=== PATIENT | male | born 1970 | race Caucasian/White ===

== ENCOUNTER → 2020-03-03 | Outpatient (CLI) | payer BC | LOC: SJCVCIMAG 10:12 | DX: I08.3 Combined rheumatic disorders of mitral, aortic and tricuspid valves (principal); I25.10 Atherosclerotic heart disease of native coronary artery without angina pectoris; I10 Essential (primary) hypertension; E78.00 Pure hypercholesterolemia, unspecified; R06.09 Other forms of dyspnea ==

== ENCOUNTER 2020-03-20 09:33 | Outpatient (CLI) | payer BC, OTHER ==
[~2020-03-20] VITALS: Ht 180.3 cm; Wt 109.0 kg
[2020-03-20 11:16] VITALS: BP 128/90
[2020-03-20] MEDS ORDERED: PROAIR HFA8.5 GM INH (11:27)
[2020-03-20] MEDS ORDERED: ASA81BEC PO (11:27)
[2020-03-20] MEDS ORDERED: COLCHICINE0.6 M1 PO (11:28)
[2020-03-20] MEDS ORDERED: WELLBUTRIN XL300 MG PO (11:28)
[2020-03-20] MEDS ORDERED: MITIGARE0.6 MG PO (11:29)
[2020-03-20] MEDS ORDERED: INDOCIN50 MG PO (11:30)
[2020-03-20] MEDS ORDERED: ALLEGRA ALLERG180 MG PO (11:30)
--- NOTE | 2020-03-20 16:33 | CATHLAB ---
[facility] [place] [address] INVASIVE PROCEDURE REPORT Name: BRANDI WILDE Room #: REG CRISTIN MSamson.#: [id number] Admission: 03/20/20 Attend Phys: Alexys Will MD Discharge: Date of : 66 Report #: [id number] THIS REPORT FOR: cc: Yanira Carlton MD, Melanie MD Park, Jin S. MD ~ APPROVED REPORT Study performed: 03/20/2020 10:21:42 Patient Details Patient Status: Out-Patient Room #: The patient is a 49 year-old male Event Personnel Alexys Will Supervisor [employer], Tracey Nur RN RN, Kel Brock RTR Lai Hartman Ja'net RTR Monitor Procedures Performed Left Heart Cath w/or w/o Coronaries [id number] [facility] Place w/wo Plasty Single LAD 052181 Art Access - R femoral artery* 53171 Initial Mod Sed Same Phys/QHP Gr5y 108635 76596 Mod Sed Same Phys/QHP Ea 895154 Hemostasis w/ Mynx Indication Dyspnea, Unstable angina , Chest pain Risk Factors Hypercholesterolemia, Coronary Artery Disease Procedure Narrative The patient was brought electively to the Cardiac Catheterization Laboratory and was prepped and draped in a sterile manner. The Right Groin^ was infiltrated with 1% Lidocaine subcutaneous anesthesia. A PINNACLE 4FR Sheath #[id number] sheath was inserted into the RFA^. Coronary angiography was performed using coronary diagnostic catheters. The right coronary system was accessed and visualized with a JR4 catheter. The left coronary system was accessed and visualized with a JL4 catheter. The left ventricle was accessed and visualized with a JR4 catheter. Left ventriculogram was performed in 30 degree projection. Closure device was deployed with a Fr MYNXGRIP 6/7F #[id number]. The patient tolerated the procedure well and there were no complications associated with the procedure. There was no hematoma. The sheath was upsized to a 6FR [place] before the intervention over [facility] [address] [place] [address] INVASIVE PROCEDURE REPORT Name: ANDRYBRANDI Room #: REG CL [facility]#: [id number] Admission: 03/20/20 Attend Phys: Alexys Will MD Discharge: Date of : 66 Report #: [id number] guidewire. Intraoperative Conscious Sedation Sedation start time: 12:16 Case end Time: 13:18 Fentanyl 50 mcg Versed 1 mg Fluoro Time: 11.80 minutes Dose: DAP 11099.00 cGycm2 3546 mGy Contrast Type and Amount: Omnipaque 290 ml Coronary Angiography The patient's coronary anatomy is right dominant. Diagnostic Cath Left Main This is a large-caliber vessel with mild disease in the distal segment, 20%. LAD The LAD is a moderate-sized caliber vessel with a severe occlusion in the midsegment, 95%. Diagonal 1 This is a moderate-sized caliber vessel, branching off the proximal segment of the LAD. The first diagonal artery has mild disease and divides into 3 branches as it supplies the anterolateral and lateral hernandez. It terminates in the inferior wall. Circumflex This is a small caliber vessel, supplying 1 small marginal vessel. There are no flow-limiting lesions. OM1 This is a small caliber vessel, with no flow-limiting lesions. Right Coronary The RCA is a dominant vessel, with mild plaquing in the proximal and distal segments, 20%. R PDA This is a moderate-sized caliber vessel, patent with no flow-limiting lesions. RPLV This is a moderate-sized caliber vessel, patent with no flow-limiting lesions. Left Ventriculography Left Ventriculography was not performed. Ejection Fraction was >55% based off patient's Echocardiogram. An LVEDP was measured and there is no gradient across the outflow tract. Hemodynamics The aortic pressure is 125/77 mmHg with a mean of mmHg. The left ventricular pressure is 140/17 mmHg with a mean of mmHg. The left ventricular end diastolic pressure is 30 mmHg. Pullback from the left ventricle to the aorta revealed no gradient across the aortic valve. [facility] [address] [place] [address] INVASIVE PROCEDURE REPORT Name: BRANDI WILDE Room #: REG CL Yolanda#: [id number] Admission: 03/20/20 Attend Phys: Alexys Will MD Discharge: Date of : 66 Report #: [id number] PCI Technique Lesion Percutaneous coronary intervention was performed on the mid left anterior descending artery segment. The lesion stenosis prior to intervention was 95% with YOVANNY 3 flow. A VISTA 6FR XB 3.5 #[id number] Guide Catheter was used to engage the LAD ostium. A Luge Wire .014 x 182CM #[id number] Interventional Guidewire was used to cross the lesion. BALLOON DILATION A Balloon catheter Euphora RX 2.25 x 15 #[id number] was inserted and inflated up to 10.00atm for 17seconds. Additional Inflation: 10.00atm for 12seconds. Additional Inflation: 10.00atm for 17seconds. STENT DEPLOYMENT A stent RESOLUTE DIPAK RX 2.25 X 34 #[id number] was inserted and inflated up to 16.00atm for 8seconds. POST STENT DEPLOYMENT BALLOON DILATION A Balloon catheter Euphora NC RX 2.5 x 20 #[id number] was inserted and inflated up to 18.00atm for 22seconds. Additional Inflation: 18.00atm for 23seconds. Final angiography reveals 0 % stenosis with YOVANNY 3 flow. Conclusion 1. Successful insertion of a drug-eluting stent into the mid LAD stenosis. 2. There is mild disease in the LAD, first diagonal artery and RCA. 3. There appears to be an occluded second diagonal artery, fills via collateral circulation. This is a small caliber vessel and medical therapy is recommended. 4. There is normal LV systolic function. 5. Recommend dual antiplatelet therapy and aggressive risk factor management. <ELECTRONICALLY SIGNED> By: Alexys Will MD 03/20/20 1632 31 163 Alexys Will MD /INF
--- NOTE | 2020-03-20 18:06 | NUR ---
ASSUMED CARE 1715 POST CARDIAC STENT TO LAD. RIGHT GROIN SIGHT C/D/I. ALERT X4, FROM HOME. DENIES SOB. DENIES PAIN. ORRIEMT TO TO ROOM. MEAL TRAY ORDERED. NSR ON TELE. UP AB RUBY TO BATHROOM. CALL LIGHT AND PERSONAL ITEMS IN REACH. PT IS OBSERVATIONS WILL DC TOMORROW BY DR NASH
[2020-03-20 19:47] VITALS: BP 153/98
--- NOTE | 2020-03-21 04:35 | NUR ---
PT HERE FOR OBSERVATION S/P HEART CATH YESTERDAY. ALERT AND ORIENTED X 4. VSS. NO PAIN, NO CHEST PAIN, NAUSEA OR VOMITING. INDEPENDENT, VOIDING TO THE BATHROOM. DENIES SOB. RIGHT GROIN SITE C/D/I. MINIMAL SORENESS REPORTED. PT ANTICIPATE TO DC THIS AM. NO EVENTS OVERNIGHT. REMAINED SR ON THE MONITOR FELTON WHILE SLEEPING, NONE LESS THAN 49. WILL CONTINUE WITH POC
[2020-03-21 05:20] VITALS: BP 138/98
[2020-03-21 05:21] LABS: HEMOGLOBIN 14.7 gm/dL (14.0-18.0); MCHC 34.2 g/dL (28.0-37.0); MCV 90.7 fL (80.0-100.0); RBC 4.74 mil/uL (4.50-6.00); RDW 13.2 % (10.5-14.5)
[2020-03-21 06:01] LABS: ALBUMIN 2.9 g/dL (3.4-5.0); CALCIUM 8.4 mg/dL (8.5-10.1); CREATININE 1.1 mg/dL (0.7-1.3); POTASSIUM 3.8 mmol/L (3.5-5.1); TOTAL BILIRUBIN 0.8 mg/dL (0.2-1.0); TOTAL PROTEIN 6.4 g/dL (6.4-8.2)
[2020-03-21 07:40] VITALS: BP 110/72; BP 128/95
[2020-03-21] MEDS ORDERED: EFFIENT10 MG PO (08:37)
[2020-03-21] MEDS ORDERED: LIPITOR40 MG PO (08:37)
--- NOTE | 2020-03-21 08:47 | EKG ---
[facility] [place] [address] [place] [address] ELECTROCARDIOGRAM REPORT Name: BRANDI WILDE Room [facility]: 207[facility] [id number] Admission: 03/20/20 Attend Phys: Alexys Will MD Discharge: Date of : 66 Report #: [id number] THIS REPORT FOR: cc: Yanira Carlton MD, Melanie MD Lundgren,You Mckee MD [facility] ~ THIS REPORT FOR: //name// [facility] Test Date: 2020-03-20 Test Time: 16:01:00 Pat Name: BRANDI WILDE Department: Room: Gender: [employer] Operator: Arun VALE : 1970 Requested By: Alexys Will Order Number: [id number] MD: You Barcenas Measurements Intervals [place] Rate: 71 P: -5 MD: 178 QRS: 3 QRSD: 92 T: 89 QT: 437 QTc: 475 Interpretive Statements Sinus rhythm Nonspecific T abnrm, anterolateral leads No previous ECG available for comparison Electronically Signed On 03-21-2020 8:46:25 CDT by You Barcenas [email or web address] <ELECTRONICALLY SIGNED> By: You Barcenas MD, [facility] 03/21/20 0846 00 00 You Barcenas MD, [facility] /EPI
[2020-03-21] MEDS ORDERED: REPATHA SU140 MG/1 M SUBQ (08:48)
--- NOTE | 2020-03-21 08:53 | EKG ---
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: [facility] : 1970 Requested By: Alexys Will Order Number: [id number] MD: You Barcenas Measurements Intervals [place] Rate: 57 P: -4 MT: 179 QRS: 4 QRSD: 93 T: 126 QT: 415 QTc: 404 Interpretive Statements Sinus rhythm Abnormal R-wave progression, late transition Abnormal T, consider ischemia, lateral leads No previous ECG available for comparison Electronically Signed On 03-21-2020 8:52:13 CDT by You Barcenas [email or web address] <ELECTRONICALLY SIGNED> By: You Barcenas MD, [facility] 03/21/20 0852 0733 You Barcenas MD, [facility] /EPI
[2020-03-21 10:08] VITALS: BP 128/95
== END 2020-03-21 10:35 | disposition home or self-care (01) ==
LOC: CATH 09:33 → 2N 17:48 → CATH 20:57
PROVIDERS: ATTEND Internal Medicine Cardiovascular Disease
DX: R07.9 Chest pain, unspecified (principal); I25.110 Atherosclerotic heart disease of native coronary artery with unstable angina pectoris; R06.00 Dyspnea, unspecified; I10 Essential (primary) hypertension; E78.5 Hyperlipidemia, unspecified; J45.909 Unspecified asthma, uncomplicated; F32.9 Major depressive disorder, single episode, unspecified; G47.33 Obstructive sleep apnea (adult) (pediatric); M10.9 Gout, unspecified; E78.00 Pure hypercholesterolemia, unspecified; K21.9 Gastro-esophageal reflux disease without esophagitis; Z98.890 Other specified postprocedural states; Z79.899 Other long term (current) drug therapy; Z85.51 Personal history of malignant neoplasm of bladder
CPT/HCPCS: 10081

== ENCOUNTER → 2021-09-27 | Outpatient (CLI) | payer BC, OTHER ==
[~2021-09-27] MED LIST: ALLEGRA ALLERG180 MG PO; ASA81BEC PO; COLCHICINE0.6 M1 PO; EFFIENT10 MG PO; INDOCIN50 MG PO; LIPITOR40 MG PO; MITIGARE0.6 MG PO; PROAIR HFA8.5 GM INH; REPATHA SU140 MG/1 M SUBQ; WELLBUTRIN XL300 MG PO
== END ==
LOC: SJCVCIMAG 09-20 07:35
PROVIDERS: ATTEND Internal Medicine Cardiovascular Disease
DX: I25.10 Atherosclerotic heart disease of native coronary artery without angina pectoris (principal)